=== PATIENT | male | born 1950 | race African-American/Black ===

== ENCOUNTER 2018-10-02 03:04 | Inpatient (IN) | payer OTHER, MEDICARE ==
[2018-10-02] VITALS (11 sets, daily range): BP systolic 114–144; BP diastolic 74–105
[~2018-10-02] VITALS: Ht 172.7 cm; Wt 69.2 kg
[2018-10-02] MEDS ORDERED: MAGNESIUM 2 G PREMIX 50 ML IV STA (03:22)
[2018-10-02] MEDS ORDERED: IPRATROPIUM BROMIDE (0.02%) 0.5MG/2.5ML NEB HHN STA (03:22)
[2018-10-02] MEDS ORDERED: ALBUTEROL (0.083%) 2.5MG/3ML NEB HHN STA (03:22)
[2018-10-02] MEDS ORDERED: METHYLPREDNISOLONE SOD SUCC 125 MG/2 ML VIAL IV STA (03:22)
[2018-10-02] MEDS ORDERED: ASPIRIN 81MG TABLET PO ONE (03:30)
[2018-10-02 03:39] LABS: BASOPHILS % 0.2 % (0.0-2.0); HEMATOCRIT. 24.5 % (42.0-52.0); HEMOGLOBIN. 7.8 g/dL (14.0-18.0); LYMPHOCYTES % 40.3 % (20.0-50.0); MEAN CORPUSCULAR HEMOGLOBIN 27.8 pg (28.0-32.0); MEAN CORPUSCULAR VOLUME 87.5 fL (80.0-94.0); MEAN PLATELET VOLUME 7.5 fl (7.4-10.4); MONOCYTES % 8.4 % (2.0-8.0); NEUTROPHILS % 50.1 % (40.0-76.0); PLATELET 205 x1000/uL (130-400); RED CELL DISTRIBUTION WIDTH 23.5 % (11.6-14.6)
[2018-10-02 03:43] LABS: CHLORIDE 109 mEq/L (98-107)
[2018-10-02 04:12] LABS: PLATELET ESTIMATE NORMAL
[2018-10-02] MEDS ORDERED: ASPIRIN 325MG EC TABLET PO SCH ×2 (04:15→09:00)
[2018-10-02] MEDS ORDERED: IOHEXOL-350 100 ML BOTTLE ONE (07:01)
[2018-10-02] MEDS ORDERED: GUAIFENESIN 200MG/10ML SUGAR FREE UDC PO PRN (07:30)
[2018-10-02] MEDS ORDERED: IPRATROPIUM/ALBUTEROL 0.5-3(2.5)MG/3ML NEB INH PRN (07:30)
[2018-10-02] MEDS ORDERED: TRAMADOL 50MG TABLET PO PRN (07:30)
[2018-10-02] MEDS ORDERED: ONDANSETRON HCL 4MG/2ML INJ IV PRN (07:30)
[2018-10-02] MEDS ORDERED: DEXTROSE 50% WATER 50ML SYRINGE IV PRN (07:30)
[2018-10-02] MEDS ORDERED: MAGNESIUM/ALUMINUM HYDROXIDE/SIMETHICONE 30ML UDC PO PRN (07:30)
[2018-10-02] MEDS ORDERED: DOCUSATE SODIUM 100MG CAPSULE PO PRN (07:30)
[2018-10-02] MEDS ORDERED: CLONIDINE 0.1MG TABLET PO PRN (07:30)
[2018-10-02] MEDS ORDERED: LORAZEPAM 0.5MG TABLET PO PRN (07:30)
[2018-10-02] MEDS ORDERED: NITROGLYCERIN 0.4MG TABLET SL SL PRN (07:30)
[2018-10-02] MEDS ORDERED: POTASSIUM CHLORIDE 20MEQ TABLET SR PO SCH (07:30)
[2018-10-02] MEDS ORDERED: ACETAMINOPHEN 325MG TABLET PO PRN (07:30)
[2018-10-02] MEDS: INSULIN LISPRO 100 UNITS/ML SUBCUT SCH ×4 (08:20→21:00)
[2018-10-02 08:31] LABS: BG BASE EXCESS -5.5 mmol/L (-2.0-2.0); BG BILEVEL POS AIRWAY PRESSURE 15/5; BG CARBOXYHEMOGLOBIN 0.7 % (0.5-1.5); BG DEOXYHEMOGLOBIN 0.4 % (0.0-5.0); BG FRACTION INSPIRED OXYGEN 100; BG HCO3 ACT 19.6 mmol/L (22.0-26.0); BG METHEMOGLOBIN 0.1 % (0.0-1.5); BG OXYGEN SATURATION 99.6 % (92.0-98.5); BG OXYHEMOGLOBIN 98.8 % (94.0-97.0); BG PCO2 36.2 mmHg (35.0-45.0); BG PH 7.351 (7.350-7.450); BG PO2 286.1 mmHg (75.0-100.0); BG SAMPLE SITE RIGHT RADIAL; BG TOTAL HEMOGLOBIN 8.3 g/dL (12.0-18.0); BG VENT MODE MASK - BIPAP; BG VENT RATE 16 set
[2018-10-02] MEDS: BLOOD SUGAR DIAGNOSTIC STRIP TEST SCH ×4 (08:34→21:00)
[2018-10-02] MEDS ORDERED: ENOXAPARIN 40MG/0.4ML SYR SUBCUT SCH (09:00)
[2018-10-02] MEDS ORDERED: PANTOPRAZOLE SODIUM 40 MG/VIAL IV SCH (09:00)
[2018-10-02] MEDS ORDERED: OMEP20CA10 MT (09:49)
[2018-10-02] MEDS ORDERED: LIP40 MT (09:50)
[2018-10-02] MEDS ORDERED: BICA50TA48 MT (09:50)
[2018-10-02] MEDS ORDERED: CETI10CA2 MT (09:52)
[2018-10-02] MEDS ORDERED: ATEN-175 MT (09:52)
[2018-10-02] MEDS ORDERED: AMLO2.5T45 MT (09:52)
[2018-10-02] MEDS ORDERED: ASPI-1159 MT (09:53)
[2018-10-02] MEDS ORDERED: ALLO300T2 MT (09:53)
[2018-10-02] MEDS ORDERED: FUROSEMIDE 20MG/2ML VIAL IVP SCH (11:00)
[2018-10-02] MEDS: METOPROLOL TARTRATE 25MG TABLET PO SCH ×2 (11:03→22:06)
[2018-10-02] MEDS: SUCRALFATE 1 G/10 ML UDC PO SCH ×4 (11:03→22:06)
[2018-10-02] MEDS: GUAIFENESIN/DM 600MG/30MG ER TAB 12HR PO SCH ×2 (11:04→21:00)
[2018-10-02] MEDS: PANTOPRAZOLE 40MG DR TABLET PO SCH ×2 (11:04→22:13)
[2018-10-02 11:16] LABS: FOLIC ACID (FOLATE) SERUM 11.9 ng/mL (>5.38)
[2018-10-02] MEDS: LEVOFLOXACIN 500MG PREMIX 100 ML IV SCH (11:59)
[2018-10-02 12:43] LABS: *AMPHETAMINES SCREEN URINE NEGATIVE (NEGATIVE); *BARBITURATES SCREEN URINE NEGATIVE (NEGATIVE); *BENZODIAZEPINES SCREEN URINE NEGATIVE (NEGATIVE)
[2018-10-02 12:44] LABS: *COCAINE SCREEN URINE NEGATIVE (NEGATIVE); CANNABINOID URINE SCREEN NEGATIVE (NEGATIVE); OPIATES URINE SCREEN NEGATIVE (NEGATIVE); PHENCYCLIDINE URINE SCREEN NEGATIVE (NEGATIVE)
[2018-10-02 12:45] LABS: METHADONE URINE SCREEN NEGATIVE (NEGATIVE)
[2018-10-02] MEDS: IPRATROPIUM/ALBUTEROL 0.5-3(2.5)MG/3ML NEB HHN SCH ×3 (13:18→20:23)
[2018-10-02] MEDS ORDERED: METHYLPREDNISOLONE SOD SUCC 125 MG/2 ML VIAL IV SCH (14:00)
[2018-10-02 16:11] LABS: CREATINE KINASE MB FRACTION 5.4 ng/mL (0.5-3.6)
[2018-10-02] MEDS ORDERED: ENOXAPARIN 80MG/0.8ML SYR SUBCUT NR (17:00)
[2018-10-02 20:37] LABS: HEMATOCRIT 22.1 % (42.0-52.0); HEMOGLOBIN 7.2 g/dL (14.0-18.0)
[2018-10-02 20:38] LABS: INR 1.3; PROTHROMBIN TIME 12.7 sec (9.6-11.0)
[2018-10-02] MEDS ORDERED: ZOLPIDEM TARTRATE 5MG TABLET PO PRN (21:00)
[2018-10-02] MEDS: ENOXAPARIN 80MG/0.8ML SYR SUBCUT SCH (22:13)
[2018-10-03] VITALS (27 sets, daily range): BP systolic 91–143; BP diastolic 59–105
[2018-10-03 00:17] LABS: HEMOGLOBIN 7.7 g/dL (14.0-18.0)
[2018-10-03 00:18] LABS: CREATINE KINASE MB FRACTION 4.2 ng/mL (0.5-3.6)
[2018-10-03] MEDS: IPRATROPIUM/ALBUTEROL 0.5-3(2.5)MG/3ML NEB HHN SCH ×6 (00:23→20:05)
[2018-10-03] MEDS: BLOOD SUGAR DIAGNOSTIC STRIP TEST SCH ×4 (07:31→20:57)
[2018-10-03] MEDS: INSULIN LISPRO 100 UNITS/ML SUBCUT SCH ×4 (08:00→20:57)
[2018-10-03] MEDS: METOPROLOL TARTRATE 25MG TABLET PO SCH ×2 (08:13→20:56)
[2018-10-03] MEDS: SUCRALFATE 1 G/10 ML UDC PO SCH ×4 (08:13→20:57)
[2018-10-03] MEDS: PANTOPRAZOLE 40MG DR TABLET PO SCH (08:13)
[2018-10-03] MEDS: GUAIFENESIN/DM 600MG/30MG ER TAB 12HR PO SCH ×2 (08:13→20:56)
[2018-10-03] MEDS: ENOXAPARIN 80MG/0.8ML SYR SUBCUT SCH ×2 (08:15→20:56)
[2018-10-03 08:55] LABS: BASOPHILS % 0.3 % (0.0-2.0); EOSINOPHILS % 0.1 % (0.0-5.0); HEMATOCRIT. 25.5 % (42.0-52.0); HEMOGLOBIN. 8.3 g/dL (14.0-18.0); LYMPHOCYTES % 14.6 % (20.0-50.0); MEAN CORPUSCULAR HEMOGLOBIN 28.2 pg (28.0-32.0); MEAN CORPUSCULAR VOLUME 86.7 fL (80.0-94.0); MONOCYTES % 10.9 % (2.0-8.0); NEUTROPHILS % 74.1 % (40.0-76.0); PLATELET 168 x1000/uL (130-400); RED BLOOD CELL COUNT 2.94 mill/uL (4.7-6.1); RED CELL DISTRIBUTION WIDTH 22.1 % (11.6-14.6)
[2018-10-03] MEDS ORDERED: FUROSEMIDE 20MG/2ML VIAL IVP SCH (09:00)
[2018-10-03 09:06] LABS: CHLORIDE 114 mEq/L (98-107)
[2018-10-03] MEDS: LEVOFLOXACIN 500MG PREMIX 100 ML IV SCH (12:01)
[2018-10-03 18:40] LABS: HEMATOCRIT 27.8 % (42.0-52.0); HEMOGLOBIN 9.2 g/dL (14.0-18.0)
[2018-10-04] MEDS: IPRATROPIUM/ALBUTEROL 0.5-3(2.5)MG/3ML NEB HHN SCH (00:06)
[2018-10-04] MEDS ORDERED: FAMOTIDINE 20MG TABLET PO SCH (09:00)
[2018-10-04] MEDS ORDERED: LEVOFLOXACIN 500MG PREMIX 100 ML IV SCH (11:00)
== END 2018-10-04 09:47 | disposition short-term general hospital (02) | DRG 280 ==
LOC: ER 03:04 → 5EST 04:11 → EDBEDREQ 04:20 → EDBEDREQTM 04:20 → EDBEDREQSVC 04:20 → ENRESERV 07:03
PROVIDERS: ADMIT Internal Medicine; ATTEND Internal Medicine
PROC: 5A09357 Assistance with Respiratory Ventilation, Less than 24 Consecutive Hours, Continuous Positive Airway Pressure (ICD-10-PCS; 2018-10-02)
PROC: 30233N1 Transfusion of Nonautologous Red Blood Cells into Peripheral Vein, Percutaneous Approach (ICD-10-PCS; principal; 2018-10-03)
DX: I21.4 Non-ST elevation (NSTEMI) myocardial infarction (principal); J96.00 Acute respiratory failure, unspecified whether with hypoxia or hypercapnia; I50.43 Acute on chronic combined systolic (congestive) and diastolic (congestive) heart failure; J44.1 Chronic obstructive pulmonary disease with (acute) exacerbation; E44.1 Mild protein-calorie malnutrition; I11.0 Hypertensive heart disease with heart failure; I25.5 Ischemic cardiomyopathy; C50.929 Malignant neoplasm of unspecified site of unspecified male breast; I27.20 Pulmonary hypertension, unspecified; D63.8 Anemia in other chronic diseases classified elsewhere; E87.6 Hypokalemia; E83.51 Hypocalcemia; E11.9 Type 2 diabetes mellitus without complications; C61 Malignant neoplasm of prostate; K21.9 Gastro-esophageal reflux disease without esophagitis; I25.10 Atherosclerotic heart disease of native coronary artery without angina pectoris; I71.2 Thoracic aortic aneurysm, without rupture; M10.9 Gout, unspecified; M54.30 Sciatica, unspecified side; Z66 Do not resuscitate; Z82.49 Family history of ischemic heart disease and other diseases of the circulatory system; Z68.23 Body mass index [BMI] 23.0-23.9, adult
CPT/HCPCS: 36415; 36600; 71045; 71275; 76700; 80048; 80061; 80305; 82375; 82550; 82553; 82607; 82746; 82805; 82962; 83036; 83540; 83550; 83615; 83880; 84484; 84550; 85014; 85018; 86850; 86900; 86920; 93005; 93306; 93970; 94644; 94660; 96365; 96375; 99285; J1650; J1815; J1940; J1956; J2930; J3475; J7050; J7611; J7620; P9016; Q9967